=== PATIENT | female | born 1995 | race Caucasian/White ===

== ENCOUNTER 2016-02-20 13:21 | Emergency (ER) | payer OTHER ==
[~2016-02-20] VITALS: Ht 162.6 cm; Wt 101.0 kg
[2016-02-20 13:30] VITALS: Ht 162.6 cm; Wt 101.0 kg
[2016-02-20 16:14] VITALS: BP 128/76; PULSE 87; RESP 20; TEMP 98.3
[2016-02-20] MEDS ORDERED: AMO500 PO (16:14)
--- NOTE | 2016-02-20 16:20 | ERD ---
ER Documentation Chief Complaint Date/Time DATE: 02/20/16 TIME: 16:17 Chief Complaint 34 WEEKS WITH COUGH AND CONGESTION HPI This is a 20-year-old female presents to the ER with a cough, runny nose, right ear pain for the last 3 days. Patient states that yesterday she had a fever. Patient denies any chest pain or shortness of breath. Patient denies getting a flu shot. She did have a headache and has some nausea. She denies vomiting or diarrhea. Patient is currently 34 weeks she states that she does have some vaginal leaking of clear fluid. She denies any vaginal bleeding or any pelvic cramping. ROS 12 point review of systems was done, all negative except per HPI. Medications Home Meds Active Scripts Amoxicillin* (Amoxicillin*) 500 Mg Cap, 500 MG PO BID for 10 Days, CAP Prov:LEIF FRANCOLIZETTE Galloway 02/20/16 Allergies Allergies: Coded Allergies: No Known Drug Allergies (Verified Allergy, Unknown, 03/27/14) PMhx/Soc Medical and Surgical Hx: pt denies Medical Hx, pt denies Surgical Hx Hx Alcohol Use: No Hx Substance Use: No Hx Tobacco Use: No Physical Exam Vitals Vital Signs Date Time Temp Pulse Resp B/P Pulse Ox O2 Delivery O2 Flow Rate FiO2 02/20/16 13:30 98.6 128 20 132/82 98 Physical Exam GENERAL: The patient is well-developed, well-nourished, in no acute distress. NECK: Cervical spine is non tender with no step off. Supple, no nuchal rigidity HEENT: Atraumatic. Pupils equal, round and reactive to light. Extraocular muscles are grossly intact. Conjunctivae pink, no discharge. Erythematous right tympanic membrane. Tonsilar erythema with no exudates or uvular deviation. Clear rhinorrhea. RESPIRATORY: Clear to auscultation bilaterally. There are no rales, wheezes or rhonchi. HEART: Regular rate and rhythm. No murmurs, clicks, rubs or gallops. EXTREMITIES: No clubbing or cyanosis. Full range of motion. Grossly neurovascularly intact. NEUROLOGIC: Alert and oriented. Cranial nerves II through XII are intact. SKIN: There is no rash. The skin is warm and dry. Procedures/MDM Differential diagnosis includes but is not limited to; Viral URI, allergic rhinitis, bronchitis, pertussis,pneumonia. Cough is likely viral in etiology. Clinical suspicion for pneumonia is low as patient appears well, is not hypoxic or in any respiratory distress. Additionally, patient has otitis media. Plan was discussed with patient they understand and agree. Patient needs to follow up with PCP in 1-2 days or return to ER sooner if symptoms worsen. As soon as patient told me that she felt some vaginal leaking I called OB triage and discussed this case with them, they said to clear patient first and then recur up to OB. As soon as patient was discharged EMT Jean took patient up to OB. Departure Diagnosis: Primary Impression: Otitis media Condition: Stable Patient Instructions: Otitis Media, Abx Tx [Child] Additional Instructions: Call your primary care doctor TOMORROW for an appointment during the next 1-2 days.See the doctor sooner or return here if your condition worsens before your appointment time. WES FRANCO Feb 20, 2016 16:20
== END 2016-02-20 16:14 | disposition home or self-care (01) ==
LOC: FTE 13:21
DX: O99.89 Other specified diseases and conditions complicating pregnancy, childbirth and the puerperium (principal); H66.91 Otitis media, unspecified, right ear; Z3A.34 34 weeks gestation of pregnancy
CPT/HCPCS: 87400; Z7502; 99283

== ENCOUNTER 2016-02-20 16:25 | Inpatient (IN) | payer OTHER ==
[~2016-02-20] VITALS: Ht 162.6 cm; Wt 101.2 kg
[~2016-02-20 16:25] MED LIST: AMO500 PO
[2016-02-20 16:42] VITALS: Ht 162.6 cm; Wt 101.2 kg
[2016-02-20] MEDS ORDERED: ACETAMINOPHEN 500 MG TAB PO STA (17:40)
[2016-02-20 17:45] LABS: BASOPHILS % 0.3 % (0.0-2.0); EOSINOPHILS % 0.5 % (0.0-7.0); HEMATOCRIT 37.3 % (37.0-47.0); HEMOGLOBIN 12.1 g/dl (12.0-16.0); LYMPHOCYTES # 1.8 10^3/ul (0.8-2.9); LYMPHOCYTES % 19.9 % (15.0-51.0); MEAN CORPUSCULAR HGB CONC 32.4 g/dl (32.0-37.0); MEAN CORPUSCULAR VOLUME 80.1 fl (82.0-101.0); MEAN PLATELET VOLUME 7.5 fl (7.4-10.4); MONOCYTE # 0.8 10^3/ul (0.3-0.9); MONOCYTES % 9.1 % (0.0-11.0); NEUTROPHIL # 6.4 10^3/ul (1.6-7.5); NEUTROPHILS % 70.2 % (39.0-77.0); PLATELET COUNT 269 10^3/UL (140-440); RED BLOOD COUNT 4.65 10^6/ul (4.20-5.40); RED CELL DISTRIBUTION WIDTH 15.7 % (11.5-14.5); UNCORRECTED WBC 9.1 10^3/ul (4.8-10.8); WHITE BLOOD COUNT 9.1 10^3/ul (4.8-10.8)
[2016-02-20 17:50] LABS: ADD UMIC YES; URINE BILIRUBIN (Dip) NEGATIVE (NEGATIVE); URINE BLOOD (Dip) TRACE (NEGATIVE); URINE COLOR YELLOW (YELLOW); URINE GLUCOSE (Dip) NEGATIVE (NEGATIVE); URINE KETONES (Dip) NEGATIVE (NEGATIVE); URINE LEUKOCYTE ESTERASE (Dip) 1+ (NEGATIVE); URINE NITRITE (Dip) NEGATIVE (NEGATIVE); URINE TOTAL PROTEIN (Dip) NEGATIVE (NEGATIVE); URINE UROBILINOGEN (Dip) 0.2 E.U./dL (0.1-1.0)
[2016-02-20 17:56] LABS: INR 0.93; PROTIME 12.5 Sec (12.2-14.2)
[2016-02-20 17:57] LABS: PARTIAL THROMBOPLASTIN TIME 30.5 Sec (25.0-35.0)
[2016-02-20 18:04] LABS: CONDITION 1; LH ANALYZER COMMENTS 1
[2016-02-20 18:42] LABS: BACTERIA,URINE MODERATE; SQUAMOUS EPITHELIAL CELL,UR MODERATE; URINE RBCS 0-2 /HPF (0)
[2016-02-20 19:02] LABS: ALBUMIN 3.7 g/dl (3.3-4.9)
[2016-02-20 19:05] LABS: ALBUMIN/GLOBULIN RATIO 0.9; BILIRUBIN,INDIRECT 0.1 mg/dl (0-1.1); BILIRUBIN,TOTAL 0.1 mg/dl (0.2-1.3); CREATININE 0.49 mg/dl (0.44-1.00); TOTAL PROTEIN 7.8 g/dl (6.1-8.1)
[2016-02-20 19:06] LABS: CALCIUM 9.6 mg/dl (8.4-10.2); URIC ACID 5.2 mg/dl (3.1-7.9)
--- NOTE | 2016-02-20 19:52 | RADRPT ---
PROCEDURE: US biophysical profile. CLINICAL INDICATION: labor at 34 weeks gestation. TECHNIQUE: Multiple sonographic images of the uterus were obtained. The images were revi ewed on a PACS workstation. COMPARISON: No prior studies are available for comparison. FINDINGS: There is a single live intrauterine gestation. heart rate is 157 beats per minute. The position is cephalic. The placenta is anterior grade II with no abruption or previa. The UMER is 10.4 cm. (Normal = 5-20 cm.) Breathing Movement: 2 Gross Body Movement: 2 Tone: 2 Qualitative Amniotic Fluid Volume: 2 TOTAL: 8 IMPRESSION: 1. The biophysical score is 8/8. RPTAT: QQ .Juan Olivo MD, MD Date Time Electronically viewed and signed by .Juan Olivo MD, on 02/20/2016 19:51 .R/
[2016-02-20] MEDS ORDERED: ACETAMINOPHEN 500 MG TAB PO PRN (20:00)
--- NOTE | 2016-02-20 20:21 | HP ---
Date/Time of Note Date/Time of Note DATE: 02/20/16 TIME: 20:14 OB - History Hx of Present Free Text/Dictation Pt is a 20yo at 34+4 who presented to the ED today c/o cough, runny nose and R ear pain x3 days. Pt also c/o leaking of fluid with coughing x3 days and was sent to OB triage for evaluation after being dx'd with otitis media of the R ear. In OB triage, the patient was r/o for PPROM, however her initial BP was 149/83, pulse was 122 and pt c/o GRIMES which was relieved by 1000mg PO Tylenol. BPs thereafter ranged from 135-159/70-73. Pt currently denies GRIMES, visual changes , RUQ pain, SOB, CP or palpitations. Pt reports normal FM and denies vaginal bleeding. She reports abdominal cramping x1hr and bladder irritation when she feels the need to void along with urinary urgency. Denies dysuria. Pt has hx of PreE in prior for which she delivered at 36wks GA. During this , pt was asked to collect a 24hr urine however she never returned the collection. Pt states BPs have been occasionally high during visits although mostly high normal. Estimated Due Date: Mar 29, 2016 : 2 Para: 1 Care: Good Care Obstetrical Complications: None Medical Complications: Respiratory (Asthma, last use of MDI 1yr ago) Past Family/Social History * Past Medical, Surgical, Family and Obstetric Histories reviewed from chart. OB Admission Exam Vital Signs Vital Signs T 98.1 BP 135-159/70-83 P 117-125 RR 18 Physical Exam Heart: Other (tachycardia, regular rhythm) Lungs: Clear Abdomen: WNL Extremities: Normal Membranes: Intact Heart Rate: 130's Accelerations: Accelerations Present Decelerations: No Decelerations Varibility: Moderate Contractions on Admission: 6-10 Minutes Apart (at times q3-6) Intensity: Mild Last 72 hours Lab Results CBC & BMP 02/20/16 17:10 Liver Function Test 02/20/16 17:10 Alanine Aminotransferase (ALT/SGPT) 24 Albumin 3.7 Alkaline Phosphatase 149 H Aspartate Amino Transf (AST/SGOT) 24 Direct Bilirubin 0.00 Total Protein 7.8 OB Assessment/Plan Other Assessment: 1)Elevated Blood Pressures, asymptomatic 2)Tachycardia 3) Contractions Other plan: Admit to Antepartum 1)Elevated BPs: PreEclampsia labs wnl and pt asymptomatic, however with elevated BPs on the cusp of severe range in the setting of a hx of PreE and incomplete baseline labs/24hr urine recommend admission for BP monitoring and 24hr urine collection 2)FWB: Category I FHT, reassuring. CEFM 3)Maternal Tachycardia: Likely related to volume depletion, given U/A results. IVF bolus now and MIVF thereafter 4) UCs: Likely 2/2 dehydration. IVF as above. Continuous toco. If UCs continue will assess cervix. GBS ordered 5)ID: Afebrile. BOWI. Pt recently diagnosed with R otitis media. Amoxicillin 500mg PO BID ordered and should continue x10d. Urine sent for culture given pt sxs and UCs 6)Ppx: Ambulation, regular diet Plan d/w pt. Questions answered to pt and partner's satisfaction. YVONNE ACOSTA MD Feb 20, 2016 20:21
[2016-02-20] MEDS: LACTATED RINGER'S 1,000 ML IV SCH ×2 (20:57→22:24)
[2016-02-20] MEDS ORDERED: ALBUTEROL HFA 8 GM INHALER INH PRN (21:00)
[2016-02-20] MEDS: AMOXICILLIN 500 MG CAP PO SCH (22:25)
[2016-02-20] MEDS: GUAIFENESIN 20 MG/ML 5ML CUP PO PRN (22:26)
[2016-02-21] MEDS: LACTATED RINGER'S 1,000 ML IV SCH (08:12)
--- NOTE | 2016-02-21 08:14 | RADRPT ---
PROCEDURE: US OB. CLINICAL INDICATION: Size and dates TECHNIQUE: Multiple sonographic images of the pelvis were obtained. Transabdominal imaging only w as performed. The images were reviewed on a PACS workstation. COMPARISON: No prior studies are available for comparison. FINDINGS: There is a single live intrauterine gestation. Cardiac activity is present with 144 beats per minut e. position is cephalic. Measurements were made in order to determine age. The results are as follows: BPD = 8.69 cm HC = 31.63 cm AC = 31.16 cm FL = 6.90 cm. Estimated gestational age of approximately 35 weeks 3 days. The estimated date of delivery is 03/24/2016. The EFW = 2649 g, 64 %ile. The placenta is anterior. There is no evidence for an abruption or placenta previa. There are no adnexal masses. IMPRESSION: 1. Single live intrauterine gestation of approximately 35 weeks 3 days, by ultrasound criteria. 2. The estimated date of delivery is 03/24/2016. 3. The estimated weight is 2649 g, 64 %ile. RPTAT: HH .Maribeth Langford MD, Date Time Electronically viewed and signed by .Maribeth Langford MD, on 02/21/2016 08:13 .G/
[2016-02-21] MEDS ORDERED: MULTIVIT/MIN/FOLATE/IRON/PREN TAB PO SCH (09:00)
[2016-02-21] MEDS: GUAIFENESIN 20 MG/ML 5ML CUP PO PRN (09:10)
[2016-02-21] MEDS: AMOXICILLIN 500 MG CAP PO SCH (09:10)
--- NOTE | 2016-02-21 11:07 | PN ---
Date/Time of Note Date/Time of Note DATE: 02/21/16 TIME: 10:58 OB Subjective Subjective Subjective Afebrile still complaining of coughing she is on Robitussin-DM and amoxicillin 500 mg by mouth her blood pressure is within high normal ,however workup for rule out PIH is in process including 24 hours urine collection for protein and creatinine clearance she also had vaginal culture for GBS. I would discharge the patient home today on amoxicillin 500 mg 3 times daily and Robitussin-DM with recommendation to follow at the clinic in 2 days FREDERIC BARAHONA MD Feb 21, 2016 11:07
--- NOTE | 2016-02-21 11:14 | DS ---
Date/Time of Note Date/Time of Note DATE: 02/21/16 TIME: 11:11 Obstetrical Discharge Record Final Diagnosis Final Diagnosis: not delivered Condition on Discharge Physical Assessment Last Vitals: Afebrile vital sign is stable except tachycardia. 100-110 with negative EKG patient is discharged home with a prescription amoxicillin 500 mg 3 times a day and Robitussin-DM to be seen at the clinic in 2 days Regarding her biophysical profile 8 over 8 with reassuring heart tracing Voiding: Yes Bowel Movement: Yes Breast: Engorged Calf Tenderness: No Patient Condition: Good FREDERIC BARAHONA MD Feb 21, 2016 11:14
--- NOTE | 2016-02-23 11:05 | RADRPT ---
Vent Rate: 105 bpm RR Interval: 0 msec AL Interval: 134 msec QRS Duration: 82 msec QT Interval: 362 msec QTC Interval: 478 msec P-R-T [place]: 58 - 58 - 30 degrees Sinus tachycardia Otherwise normal ECG Electronically Signed By: Lb Levy [id number]
== END 2016-02-21 12:30 | disposition home or self-care (01) | DRG 778 ==
LOC: OBT 16:25 → L-D 16:26 → OBG 19:40 → OBT 19:40
PROVIDERS: ADMIT Obstetrics & Gynecology; ATTEND Obstetrics & Gynecology
DX: O60.03 Preterm labor without delivery, third trimester (principal); E86.0 Dehydration; Z3A.34 34 weeks gestation of pregnancy; R05 Cough; O26.893 Other specified pregnancy related conditions, third trimester; R00.0 Tachycardia, unspecified
CPT/HCPCS: 36415; 76815; 76818; 80053; 81001; 81003; 84112; 84560; 85025; 85384; 85610; 85730; 87081; 87086; 93005; 96360; G0463; J7120

== ENCOUNTER 2016-02-22 11:49 | Outpatient (CLI) | payer OTHER ==
[~2016-02-22] VITALS: Ht 162.6 cm; Wt 101.7 kg
[2016-02-22 12:09] VITALS: BP 141/72; PULSE 116; Ht 162.6 cm; Wt 101.7 kg
[2016-02-22 13:35] LABS: SCRET 0.49 mg/dl (0.44-1.00)
--- NOTE | 2016-05-02 13:25 | QN ---
Documentation Comment 34 weeks sent from clinic for rule out -induced hypertension recommended 24 hours urine collection and complete PIH panel the 24 hours urine collection for protein was sent out report not available patient will be followed as outpatient for suspected PIH with warnings symptoms of PIH recommended to return to the hospital if develops headache blurry vision or epigastric pain. FREDERIC BARAHONA MD May 02, 2016 13:25
== END 2016-02-22 13:26 | disposition home or self-care (01) ==
LOC: OBT 11:49 → L-D 11:50 → OBT 13:26
PROVIDERS: ATTEND Obstetrics & Gynecology
DX: O13.3 Gestational [pregnancy-induced] hypertension without significant proteinuria, third trimester (principal); Z3A.34 34 weeks gestation of pregnancy
CPT/HCPCS: 82575; 84156; Z7500; G0463

== ENCOUNTER 2016-03-21 21:13 | Inpatient (IN) | payer OTHER ==
[~2016-03-21] VITALS: Ht 162.6 cm; Wt 104.7 kg
[2016-03-21 22:01] VITALS: Ht 162.6 cm; Wt 104.7 kg
[2016-03-21 22:02] VITALS: BP 148/87; PULSE 101; RESP 20
[2016-03-21] MEDS ORDERED: CARBOPROST 250 MCG INJ IM PRN (22:30)
[2016-03-21] MEDS ORDERED: METHYLERGONOVINE 0.2 MG INJ IM PRN (22:30)
[2016-03-21] MEDS ORDERED: MISOPROSTOL 200 MCG TAB PR PRN (22:30)
[2016-03-21] MEDS ORDERED: OXYTOCIN 30 UNITS/LR 500 ML IV SCH ×2 (22:30)
[2016-03-21] MEDS ORDERED: AMPICILLIN 2 GM/NS (PMX) 100 ML IV ONE (22:30)
[2016-03-21] MEDS ORDERED: LACTATED RINGER'S 1,000 ML IV PRN (22:30)
[2016-03-21] MEDS ORDERED: LIDOCAINE 1% (MPF) 30 ML INJ INJ PRN (22:30)
[2016-03-21] MEDS ORDERED: OXYTOCIN 30 UNITS/LR 500 ML IV PRN (22:30)
[2016-03-21 22:44] LABS: BASOPHILS % 0.1 % (0.0-2.0); EOSINOPHILS # 0.6 10^3/ul (0.0-0.5); EOSINOPHILS % 3.8 % (0.0-7.0); HEMATOCRIT 38.3 % (37.0-47.0); HEMOGLOBIN 12.5 g/dl (12.0-16.0); LYMPHOCYTES # 2.8 10^3/ul (0.8-2.9); LYMPHOCYTES % 18.2 % (15.0-51.0); MEAN CORPUSCULAR HEMOGLOBIN 26.4 pg (29.0-33.0); MEAN CORPUSCULAR HGB CONC 32.7 g/dl (32.0-37.0); MEAN CORPUSCULAR VOLUME 80.8 fl (82.0-101.0); MEAN PLATELET VOLUME 8.5 fl (7.4-10.4); MONOCYTE # 0.8 10^3/ul (0.3-0.9); NEUTROPHIL # 11.1 10^3/ul (1.6-7.5); NEUTROPHILS % 72.9 % (39.0-77.0); PLATELET COUNT 293 10^3/UL (140-440); RED BLOOD COUNT 4.74 10^6/ul (4.20-5.40); RED CELL DISTRIBUTION WIDTH 16.1 % (11.5-14.5); UNCORRECTED WBC 15.3 10^3/ul (4.8-10.8); WHITE BLOOD COUNT 15.3 10^3/ul (4.8-10.8)
[2016-03-21 22:47] LABS: ADD UMIC YES; URINE BILIRUBIN (Dip) NEGATIVE (NEGATIVE); URINE BLOOD (Dip) NEGATIVE (NEGATIVE); URINE COLOR LT. YELLOW (YELLOW); URINE GLUCOSE (Dip) NEGATIVE (NEGATIVE); URINE KETONES (Dip) NEGATIVE (NEGATIVE); URINE LEUKOCYTE ESTERASE (Dip) TRACE (NEGATIVE); URINE NITRITE (Dip) NEGATIVE (NEGATIVE); URINE TOTAL PROTEIN (Dip) NEGATIVE (NEGATIVE); URINE UROBILINOGEN (Dip) 0.2 E.U./dL (0.1-1.0)
[2016-03-21 22:51] LABS: CONDITION 1; LH ANALYZER COMMENTS 1
[2016-03-21 22:59] LABS: INR 0.95; PROTIME 12.7 Sec (12.2-14.2)
[2016-03-21 23:00] LABS: ALBUMIN 3.8 g/dl (3.3-4.9)
[2016-03-21 23:01] LABS: POTASSIUM 4.1 mmol/L (3.5-5.1)
[2016-03-21 23:03] LABS: CREATININE 0.54 mg/dl (0.44-1.00); TOTAL PROTEIN 7.6 g/dl (6.1-8.1)
[2016-03-21 23:04] LABS: CALCIUM 9.7 mg/dl (8.4-10.2); URIC ACID 5.8 mg/dl (3.1-7.9)
[2016-03-22 02:26] LABS: ADD UMIC YES; URINE BILIRUBIN (Dip) NEGATIVE (NEGATIVE); URINE BLOOD (Dip) NEGATIVE (NEGATIVE); URINE COLOR LT. YELLOW (YELLOW); URINE GLUCOSE (Dip) NEGATIVE (NEGATIVE); URINE KETONES (Dip) TRACE (NEGATIVE); URINE LEUKOCYTE ESTERASE (Dip) NEGATIVE (NEGATIVE); URINE NITRITE (Dip) NEGATIVE (NEGATIVE); URINE TOTAL PROTEIN (Dip) TRACE (NEGATIVE); URINE UROBILINOGEN (Dip) 0.2 E.U./dL (0.1-1.0)
[2016-03-22 02:37] LABS: SQUAMOUS EPITHELIAL CELL,UR FEW; URINE RBCS NONE SEEN /HPF (0)
[2016-03-22] MEDS: BUTORPHANOL 2 MG INJ IV PRN ×3 (02:59→06:04)
[2016-03-22] MEDS: AMPICILLIN 1 GM/NS (PMX) 50 ML IV SCH ×2 (03:30→07:56)
--- NOTE | 2016-03-22 05:33 | HP ---
Date/Time of Note Date/Time of Note DATE: 03/22/16 TIME: 05:26 OB - History Hx of Present Free Text/Dictation 20 y/o with SIUP at 38 6/7 wkss c/o uterine contractions. She has been receiving her care with Dr. Reece. She states good movement. She denies nausea, vomiting, shortness of breath, chest pain, and abdominal pain between contractions, headache, visual changes, vaginal bleeding or LOF. Chief Complaint: UCS Estimated Due Date: Mar 29, 2016 : 2 Para: 1 Spontaneous : 0 Therapeutic : 0 Care: Good Care Ultrasounds: Normal mid trimester US Obstetrical Complications: Gestational Hypertension, Other Medical Complications: Respiratory (Asthma) Past Family/Social History * Past Medical, Surgical, Family and Obstetric Histories reviewed from chart. Blood Type: A+ Rubella: immune RPR/VDRL: Negative GBS Status: Positive HBsAG: Negative OB Admission Exam Vital Signs Vital Signs Vital Signs Date Time Temp Pulse Resp B/P Pulse Ox O2 Delivery O2 Flow Rate FiO2 03/21/16 22:02 98.3 101 20 148/87 Room Air Physical Exam HEENT: WNL Heart: Rhythm Normal Lungs: Clear Abdomen: WNL Extremities: Normal Reflexes: Normal Cervical Dilatation: 5cm Effacement: 75% Station: -3 Membranes: Intact Heart Rate: 140's Accelerations: Accelerations Present Decelerations: No Decelerations Varibility: Moderate Contractions on Admission: < 5 Minutes Apart Intensity: Moderate Last 72 hours Lab Results CBC & BMP 03/21/16 22:25 Liver Function Test 03/21/16 22:25 Alanine Aminotransferase (ALT/SGPT) 19 Albumin 3.8 Alkaline Phosphatase 145 H Aspartate Amino Transf (AST/SGOT) 17 Direct Bilirubin 0.00 Total Protein 7.6 OB Assessment/Plan Other plan: 20Year-old with SIUP at 38 6/7 wks in active labor - FHR: No sign of metabolic acidosis- Category I - Continious EFM, toco - CBC, blood type and screen - Analgesia options with R/B/A discussed in detail with patient - Epidural per patient request - Please see the orders - A+/Rubella: Immune/GBS positive, ampi ordered Admission, procedures, expectations, risks and possible complications have been discussed in detail with the patient. Risk of vaginal delivery including but not limited to bleeding, infection, cervical laceration, placental retention, injury to fetus, blood transfusion, blood transfusion related infection, risk of anesthesia, adhesion, cervical laceration, episiotomy/laceration, possible delivery with risk of bleeding, infection, injury to other organs ( bowel, bladder, ureter, vessels, nerves), injury to fetus, blood transfusion, blood transfusion related infection, risk of anesthesia, scar and hernia formation, needs for future , removal of uterus or any other indicated surgery discussed with the patient. She expressed understanding and repeats the risks. All of her questions were answered; all appropriate consents will be signed. PHYSICIAN'S VERIFICATION OF INFORMED CONSENT: The patient was counseled regarding the procedure, its indications, risks, potential complications and alternatives and any questions were answered. Consent was obtained. PLANNED PROCEDURE/TREATMENT: Vaginal delivery with possible vacuum/forceps delivery episiotomy, repair of laceration possible delivery PHYSICIAN'S VERIFICATION OF INFORMED CONSENT FOR BLOOD TRANSFUSION: There is a reasonable possibility that blood transfusion will be necessary as a result of the patient's procedure. I have discussed the following with the patient/patient's legal communications representative: An explanation of the benefits and risks of the transfusion of blood or blood products and the possible alternatives. Al questions have been answered to the patient's/patients legal representatives satisfaction. INFORMED CONSENT: The patient has been informed of: - The nature of the proposed care, treatment, services, medic- Potential benefits, risks or side effects, including potential problems related to recuperation. - The likelihood of achieving care treatment and service goals. - Reasonable alternatives to the proposed care, treatment and service. - The relevant risks, benefits and side effects related to alternatives, including the possible results of not receiving care, treatment and services. - When indicated, any limitations on the confidentiality of information learned from or about the patient. - If appropriate, the risks, benefits and alternatives of the drugs to be used for sedation/analgesia including moderate sedation. CAROLE COELHO Mar 22, 2016 05:33
[2016-03-22] MEDS: LACTATED RINGER'S 1,000 ML IV SCH ×3 (06:00→06:01)
[2016-03-22] MEDS ORDERED: FENTAnyl 2MCG/ML-ROPIV 0.2% 100 ML ONE (06:07)
[2016-03-22] MEDS ORDERED: FENTAnyl 2MCG/ML-ROPIV 0.2% 100 ML BAG EPI SCH (06:30)
[2016-03-22] MEDS ORDERED: NALOXONE (0.4 MG/ML) INJ IV PRN (06:30)
--- NOTE | 2016-03-22 09:46 | LDN ---
Date/Time of Note Date/Time of Note DATE: 03/22/16 TIME: 09:40 Delivery Summary Normal spontaneous vaginal delivery of baby boy from MABLE position shoulders delivered without difficulty naso-oropharyngeal suction was performed cord clamped after to stopped pulsation baby handed to the team for immediate attention patient received 20 units of Pitocin through IV infusion, patient sustained various small less than 1 cm perineal laceration which repaired with 3-0 chromic catgut blood loss 200 mL Placenta Delivered: Spontaneously Meconium: none Perineum intact?: No Perineal laceration repair: Small first-degree perineal laceration repaired with 3-0 chromic catgut Anesthesia type: Epidural Estimated blood loss: 200 Sponge & Needle done & correct: Yes Any foreign bodies felt in the: No Problems: Infant Delivery Information Sex Sex: male Apgars 1 Minute: 9 5 Minute: 9 Suctioning Nose & mouth suctioned at janeth: Yes Delee suction performed: No Umbilical Cord Umbilical cord with: 3 Vessels Cord presentations: no nuchal cord Cord Blood was obtained: Yes FREDERIC BARAHONA MD Mar 22, 2016 09:46
[2016-03-22 10:53] LABS: BARBITURATES NEGATIVE (NEGATIVE); BENZODIAZEPINES NEGATIVE (NEGATIVE); CANNABINOIDS NEGATIVE (NEGATIVE); COCAINE NEGATIVE (NEGATIVE); OPIATES NEGATIVE (NEGATIVE)
[2016-03-22 12:10] VITALS: BP 145/66; PULSE 109; RESP 18
[2016-03-22] MEDS ORDERED: WITCH HAZEL/GLYCERIN PAD PR PRN (14:30)
[2016-03-22] MEDS ORDERED: ACETAMINOPHEN/CODEINE #3 TAB PO PRN ×2 (14:30)
[2016-03-22] MEDS ORDERED: LANOLIN 7 GM TUBE TOP PRN (14:30)
[2016-03-22] MEDS ORDERED: OXYCODONE/ASPIRIN (4.88/325) TAB PO PRN ×2 (14:30)
[2016-03-22] MEDS ORDERED: BENZOCAINE 20% 56 ML SPRAY TOP PRN (14:30)
[2016-03-22] MEDS ORDERED: DIBUCAINE 1% 30 GM OINT PR PRN (14:30)
[2016-03-22] MEDS ORDERED: ONDANSETRON 4 MG INJ IV PRN (14:30)
[2016-03-22] MEDS ORDERED: ACETAMINOPHEN 325 MG TAB PO PRN (14:30)
[2016-03-22] MEDS: OXYTOCIN 30 UNITS/LR 500 ML IV SCH ×2 (14:42→18:01)
[2016-03-22 16:30] VITALS: BP 131/69; PULSE 102; RESP 16
[2016-03-22] MEDS: IBUPROFEN 600 MG TAB PO SCH (17:47)
[2016-03-22 19:35] VITALS: BP 118/66; PULSE 96; RESP 18
[2016-03-22] MEDS: SENNA/DOCUSATE NA (8.6MG/50MG) TAB PO SCH (21:09)
[2016-03-23] VITALS: BP 132/80; PULSE 93; RESP 18
[2016-03-23] MEDS: IBUPROFEN 600 MG TAB PO SCH ×5 (00:02→23:50)
[2016-03-23 04:35] VITALS: BP 115/65; PULSE 90; RESP 18
[2016-03-23 07:44] LABS: BASOPHILS % 0.1 % (0.0-2.0); EOSINOPHILS # 0.6 10^3/ul (0.0-0.5); EOSINOPHILS % 4.7 % (0.0-7.0); HEMATOCRIT 31.4 % (37.0-47.0); HEMOGLOBIN 10.5 g/dl (12.0-16.0); LYMPHOCYTES # 3.4 10^3/ul (0.8-2.9); LYMPHOCYTES % 28.3 % (15.0-51.0); MEAN CORPUSCULAR HEMOGLOBIN 27.3 pg (29.0-33.0); MEAN CORPUSCULAR HGB CONC 33.5 g/dl (32.0-37.0); MEAN CORPUSCULAR VOLUME 81.4 fl (82.0-101.0); MEAN PLATELET VOLUME 8.2 fl (7.4-10.4); MONOCYTE # 0.6 10^3/ul (0.3-0.9); MONOCYTES % 5.3 % (0.0-11.0); NEUTROPHIL # 7.3 10^3/ul (1.6-7.5); NEUTROPHILS % 61.6 % (39.0-77.0); PLATELET COUNT 246 10^3/UL (140-440); RED BLOOD COUNT 3.86 10^6/ul (4.20-5.40); RED CELL DISTRIBUTION WIDTH 16.2 % (11.5-14.5); UNCORRECTED WBC 11.9 10^3/ul (4.8-10.8); WHITE BLOOD COUNT 11.9 10^3/ul (4.8-10.8)
[2016-03-23 07:51] LABS: CONDITION 1; LH ANALYZER COMMENTS 1
[2016-03-23 08:20] VITALS: BP 125/56; PULSE 98; RESP 17
--- NOTE | 2016-03-23 08:58 | PN ---
Date/Time of Note Date/Time of Note DATE: 03/23/16 TIME: 08:57 OB Subjective Subjective Subjective day 1 Afebrile vital sign stable, abdomen soft, uterus firm, lochia normal, extremity normal. FREDERIC BARAHONA MD Mar 23, 2016 08:58
[2016-03-23] MEDS: SENNA/DOCUSATE NA (8.6MG/50MG) TAB PO SCH ×2 (09:30→21:07)
[2016-03-23 19:35] VITALS: BP 124/73; PULSE 100; RESP 18
[2016-03-24 04:10] VITALS: BP 127/65; PULSE 94; RESP 19
[2016-03-24] MEDS: IBUPROFEN 600 MG TAB PO SCH ×2 (05:50→11:42)
[2016-03-24 08:00] VITALS: BP 109/69; PULSE 99; RESP 18
[2016-03-24] MEDS: SENNA/DOCUSATE NA (8.6MG/50MG) TAB PO SCH (08:32)
[2016-03-24] MEDS ORDERED: MEASLES,MUMPS,RUBELLA VACCINE INJ SC* ONE (09:00)
--- NOTE | 2016-03-24 09:50 | DS ---
Date/Time of Note Date/Time of Note DATE: 03/24/16 TIME: 09:46 Obstetrical Discharge Record Final Diagnosis Final Diagnosis: Term delivered Vaginal Delivery Obstetrical Delivery: Spontaneous, Episiotomy, Repaired Complications Augmentation: No Induction: No Condition on Discharge Physical Assessment Voiding: Yes Bowel Movement: Yes Breast: Soft, non-tender Fundus: Firm Abdomen and Incision: soft Episiotomy: healing Calf Tenderness: No Patient Condition: Good BRAN FERNÁNDEZ MD Mar 24, 2016 09:49
[2016-03-24] MEDS ORDERED: DIPHTH/TET/ACEL PERTUSS (ADULT) 0.5 ML VIAL IM* ONE (12:00)
[2016-03-24 16:25] VITALS: BP 112/62; PULSE 86; RESP 18
== END 2016-03-24 16:55 | disposition home or self-care (01) | DRG 775 ==
LOC: OBT 21:13 → L-D 21:16 → OBT 21:33 → L-D 21:33 → PP1 03-22 11:55
PROVIDERS: ADMIT Obstetrics & Gynecology; ATTEND Obstetrics & Gynecology
PROC: 10E0XZZ Delivery of Products of Conception, External Approach (ICD-10-PCS; principal; 2016-03-22)
PROC: 0W8NXZZ Division of Female Perineum, External Approach (ICD-10-PCS; 2016-03-22)
DX: O13.4 Gestational [pregnancy-induced] hypertension without significant proteinuria, complicating childbirth (principal); Z37.0 Single live birth; Z3A.38 38 weeks gestation of pregnancy
CPT/HCPCS: 62319; 80053; 80307; 81001; 81003; 84560; 85025; 85384; 85610; 85730; 86592; 86900; 86901; 87340; 90715; G0463; J0290; J2590; J3010; J7120

== ENCOUNTER 2017-11-22 16:05 | Emergency (ER) | END 2017-11-22 18:44 | disposition home or self-care (01) ==